=== PATIENT | female | born 1950 | race Two or more races ===

== ENCOUNTER 2018-07-08 00:14 | Emergency (ER) | payer MEDICARE ==
[~2018-07-08] VITALS: Ht 160 cm; Wt 65.8 kg
[2018-07-08] MEDS ORDERED: HYDROCODONE/APAP 5/325MG 1 EACH TABLET PO ONE (02:00)
--- NOTE | 2018-07-08 02:00 | NUR ---
PT BIB FAMILY DUE TO GLF. V/S STABLE. NO RESPIRATORY DISTRESS NOTED.
[2018-07-08] MEDS ORDERED: HYDROCODONE/APAP 5/325MG 1 EACH TABLET ONE ×2 (02:05→02:08)
--- NOTE | 2018-07-08 03:08 | NUR ---
PT D/C STABLE WITH IMMOBILIZER
[2018-07-08 03:09] VITALS: BP 157/89
== END 2018-07-08 03:10 | disposition home or self-care (01) ==
LOC: ER 00:19
DX: S42.351A Displaced comminuted fracture of shaft of humerus, right arm, initial encounter for closed fracture (principal); S92.191A Other fracture of right talus, initial encounter for closed fracture; Z88.1 Allergy status to other antibiotic agents; Z60.2 Problems related to living alone; W18.09XA Striking against other object with subsequent fall, initial encounter; Y93.89 Activity, other specified; Y92.89 Other specified places as the place of occurrence of the external cause; Y99.8 Other external cause status
CPT/HCPCS: 73030-TC; 73610-TC